=== PATIENT | female | born 1930 | race Caucasian/White ===

== ENCOUNTER 2019-01-20 20:18 | Inpatient (IN) | payer MEDICARE ==
[~2019-01-20] VITALS: Ht 160 cm; Wt 72.6 kg
[2019-01-20] MEDS ORDERED: ELAVIL25 MG PO (20:26)
[2019-01-20] MEDS ORDERED: ZOLOFT50 MG PO (20:27)
[2019-01-20] MEDS ORDERED: COZAAR25 MG PO (20:28)
[2019-01-20] MEDS ORDERED: COREG6.25 MG PO (20:28)
[2019-01-20] MEDS ORDERED: VOLTAREN25 MG PO (20:29)
[2019-01-20 21:41] VITALS: BP 236/82
[2019-01-20 21:41] LABS: BASOPHILS 0.1 % (0-2); EOSINOPHILS 0.5 % (0-7); HEMATOCRIT 42.7 % (36.0-48.0); HEMOGLOBIN 14.6 g/dL (12-16); IMMATURE GRANULOCYTES 0.7 % (0-5); LYMPHOCYTES 14.2 % (15-50); MCH 31.6 pg (26.0-34.0); MCHC 34.2 g/dL (31.0-37.0); MCV 92.4 fL (80.0-100.0); MEAN PLATELET VOLUME 9.4 fL (7.4-10.4); MONOCYTES 4.5 % (2-11); PLATELET COUNT 154 10x3/uL (130-400); RBC 4.62 10x6/uL (4.00-5.40); RDW 12.5 % (11.5-14.5); WBC 9.2 10x3/uL (4.8-10.8)
[2019-01-20 21:53] VITALS: BP 196/66
[2019-01-20 21:58] LABS: ALBUMIN 3.6 g/dL (3.4-5.0); ANION GAP 10.8 mmol/L (8-16); BILIRUBIN - TOTAL 0.53 mg/dL (0.2-1.3); CALCIUM 9.6 mg/dL (8.5-10.1); CARBON DIOXIDE 28.8 mmol/L (21.0-32.0); CREATININE - SERUM 0.9 mg/dL (0.6-1.3); POTASSIUM - SERUM 4.6 mmol/L (3.5-5.1); PROTEIN - SERUM 7.8 g/dL (6.4-8.2)
[2019-01-20 22:10] LABS: APTT 25.6 SECONDS (22.8-39.4); INR 1.03 (0.85-1.17)
[2019-01-20 22:45] VITALS: BP 169/55
[2019-01-21 00:30] VITALS: BP 141/52
[2019-01-21 02:18] VITALS: BP 145/50; BMI 28.4
[2019-01-21 05:03] VITALS: BP 165/64
[2019-01-21 06:04] LABS: ALBUMIN 3.3 g/dL (3.4-5.0); ANION GAP 9.4 mmol/L (8-16); BILIRUBIN - TOTAL 0.47 mg/dL (0.2-1.3); CARBON DIOXIDE 31.2 mmol/L (21.0-32.0); CREATININE - SERUM 0.9 mg/dL (0.6-1.3); POTASSIUM - SERUM 4.6 mmol/L (3.5-5.1); PROTEIN - SERUM 7.1 g/dL (6.4-8.2)
[2019-01-21 06:07] LABS: BASOPHILS 0.1 % (0-2); EOSINOPHILS 0.9 % (0-7); HEMATOCRIT 40.8 % (36.0-48.0); HEMOGLOBIN 13.6 g/dL (12-16); IMMATURE GRANULOCYTES 0.3 % (0-5); LYMPHOCYTES 6.5 % (15-50); MCH 31.2 pg (26.0-34.0); MCHC 33.3 g/dL (31.0-37.0); MCV 93.6 fL (80.0-100.0); MEAN PLATELET VOLUME 9.6 fL (7.4-10.4); MONOCYTES 4.2 % (2-11); PLATELET COUNT 172 10x3/uL (130-400); RBC 4.36 10x6/uL (4.00-5.40); RDW 12.8 % (11.5-14.5)
[2019-01-21 06:39] LABS: WBC 15.8 10x3/uL (4.8-10.8)
[2019-01-21 09:16] VITALS: BP 153/58
[2019-01-21 14:52] VITALS: Ht 160 cm; Wt 72.6 kg
[2019-01-21 16:13] VITALS: BP 135/58
[2019-01-21 19:01] LABS: APPEARANCE CLEAR (CLEAR); BILIRUBIN NEGATIVE (NEGATIVE); COLOR YELLOW (YELLOW); GLUCOSE NEGATIVE (NEGATIVE); KETONE NEGATIVE (NEGATIVE); NITRITE NEGATIVE (NEGATIVE); PROTEIN NEGATIVE (NEGATIVE); SPECIFIC GRAVITY 1.025 (1.005-1.020); UROBILINOGEN NORMAL (NORMAL)
[2019-01-21 19:02] LABS: BACTERIA FEW /hpf (NONE SEEN); RED CELLS - URINE 0-5 /hpf (0-5); WHITE CELLS - URINE OCC /hpf (0-5)
[2019-01-22] VITALS: BP 188/68
[2019-01-22 04:00] VITALS: BP 175/54
[2019-01-22 06:17] LABS: BASOPHILS 0.1 % (0-2); EOSINOPHILS 0.9 % (0-7); HEMATOCRIT 34.7 % (36.0-48.0); HEMOGLOBIN 11.5 g/dL (12-16); IMMATURE GRANULOCYTES 0.3 % (0-5); LYMPHOCYTES 8.9 % (15-50); MCH 31.3 pg (26.0-34.0); MCHC 33.1 g/dL (31.0-37.0); MCV 94.3 fL (80.0-100.0); MEAN PLATELET VOLUME 9.9 fL (7.4-10.4); MONOCYTES 5.8 % (2-11); RBC 3.68 10x6/uL (4.00-5.40); RDW 13.1 % (11.5-14.5)
[2019-01-22 06:27] LABS: PLATELET COUNT 122 10x3/uL (130-400); WBC 11.8 10x3/uL (4.8-10.8)
[2019-01-22 06:36] LABS: ALBUMIN 2.6 g/dL (3.4-5.0); ANION GAP 8.8 mmol/L (8-16); BILIRUBIN - TOTAL 0.45 mg/dL (0.2-1.3); CALCIUM 8.2 mg/dL (8.5-10.1); CARBON DIOXIDE 29.8 mmol/L (21.0-32.0); CREATININE - SERUM 0.8 mg/dL (0.6-1.3); POTASSIUM - SERUM 4.6 mmol/L (3.5-5.1); PROTEIN - SERUM 6.3 g/dL (6.4-8.2)
[2019-01-22 08:45] VITALS: BP 174/66
[2019-01-22 12:48] VITALS: BP 146/53
--- NOTE | 2019-01-22 16:23 | MORECARE ---
CASE MANAGEMENT DISCHARGE SUMMARY PATIENT: HAL COONEY UNIT: [id number] ADM DATE: 01/20/19 AGE: 88 : [birth year] SEX: F ROOM/BED: D.2218 AUTHOR: ANA TURNER PHYSICIAN: REFERRING PHYSICIAN: KATHRYN PAUILNO MD DATE OF SERVICE: 01/22/19 Discharge Plan Patient Name: HAL COONEY Facility: [facility]:[place] : 1930 Planned Disposition: Anticipated Discharge Date: Discharge Date: Expected LOS: Initial Reviewer: [email or web address] Initial Review Date: 01/20/2019 Generated: 01/22/19 5:23 pm Comments DCP- Discharge Planning Updated by [email or web address]: Cristy Montoya on 01/22/19 3:[address] attempted to see patient, but she was sleeping will try again tomorrow Patient Name: HAL COONEY Page 88788 at 1623 All edits/amendments must be made on the electronic document DICTATION DATE: 01/22/191622 MANAGER TRUST: AKASH 01/22/19 162 RPT#: [id number] DC DATE: STATUS: ADM IN [facility] [address] [place] [address] END OF REPORT
[2019-01-22 16:35] VITALS: BP 113/63
[2019-01-22 20:00] VITALS: BP 156/61
[2019-01-22 20:57] LABS: APPEARANCE HAZY (CLEAR); BILIRUBIN NEGATIVE (NEGATIVE); COLOR YELLOW (YELLOW); GLUCOSE NEGATIVE (NEGATIVE); KETONE NEGATIVE (NEGATIVE); NITRITE NEGATIVE (NEGATIVE); PROTEIN TRACE mg/dL (NEGATIVE); RED CELLS - URINE 25-50 /hpf (0-5); SPECIFIC GRAVITY 1.015 (1.005-1.020); UROBILINOGEN NORMAL (NORMAL); WHITE CELLS - URINE 0-5 /hpf (0-5)
[2019-01-22 20:58] LABS: BACTERIA FEW /hpf (NONE SEEN); EPITHELIAL CELLS 0-5 /hpf (0-5)
[2019-01-23] VITALS: BP 151/48
[2019-01-23 04:00] VITALS: BP 132/60
[2019-01-23 05:15] LABS: BASOPHILS 0.2 % (0-2); HEMATOCRIT 31.1 % (36.0-48.0); HEMOGLOBIN 10.3 g/dL (12-16); IMMATURE GRANULOCYTES 0.3 % (0-5); LYMPHOCYTES 13.8 % (15-50); MCH 31.5 pg (26.0-34.0); MCHC 33.1 g/dL (31.0-37.0); MCV 95.1 fL (80.0-100.0); MEAN PLATELET VOLUME 10.2 fL (7.4-10.4); MONOCYTES 6.5 % (2-11); NEUTROPHILS 74.2 % (40-80); PLATELET COUNT 99 10x3/uL (130-400); RBC 3.27 10x6/uL (4.00-5.40); RDW 13.2 % (11.5-14.5); WBC 10.3 10x3/uL (4.8-10.8)
[2019-01-23 05:44] LABS: ALBUMIN 2.4 g/dL (3.4-5.0); ANION GAP 11.4 mmol/L (8-16); BILIRUBIN - TOTAL 0.41 mg/dL (0.2-1.3); CARBON DIOXIDE 27.6 mmol/L (21.0-32.0); CREATININE - SERUM 0.8 mg/dL (0.6-1.3); PROTEIN - SERUM 5.6 g/dL (6.4-8.2)
[2019-01-23 08:46] VITALS: BP 167/66
--- NOTE | 2019-01-23 12:00 | MORECARE ---
CASE MANAGEMENT DISCHARGE SUMMARY PATIENT: HAL COONEY UNIT: [id number] ADM DATE: 01/20/19 AGE: 88 : [birth year] SEX: F ROOM/BED: D.2218 AUTHOR: ANA TURNER PHYSICIAN: REFERRING PHYSICIAN: KATHRYN PAULINO MD DATE OF SERVICE: 01/23/19 Discharge Plan Patient Name: HAL COONEY [facility]:[place] : 1930 Planned Disposition: Inpatient Rehab Anticipated Discharge Date: Discharge Date: Expected LOS: Initial Reviewer: [email or web address] Initial Review Date: 01/20/2019 Generated: 01/23/19 12:59 pm Comments DCP- Discharge Planning Updated by [email or web address]: Cristy Montyoa on 01/22/19 3:[address] attempted to see patient, but she was sleeping will try again tomorrow Last DP export: 01/22/19 3:23 pm Patient Name: HAL COONEY Page 72896 at 1200 All edits/amendments must be made on the electronic document DICTATION DATE: 01/23/19 1159 LOGISTICS OPERATIONS MANAGER: AKASH 01/23/19 1159 RPT#: [id number] DC DATE: STATUS: ADM IN [address] [place] [address] END OF REPORT
--- NOTE | 2019-01-23 12:08 | MORECARE ---
CASE MANAGEMENT DISCHARGE SUMMARY PATIENT: HAL COONEY UNIT: [id number] ADM DATE: 01/20/19 AGE: 88 : [birth year] SEX: F ROOM/BED: D.2218 AUTHOR: ANA TURNER PHYSICIAN: REFERRING PHYSICIAN: KATHRYN PAULINO MD DATE OF SERVICE: 01/23/19 Discharge Plan Patient Name: HAL COONEY Facility: [facility]:[place] : 1930 Planned Disposition: Inpatient Rehab Anticipated Discharge Date: Discharge Date: Expected LOS: Initial Reviewer: [email or web address] Initial Review Date: 01/20/2019 Generated: 01/23/19 1:07 pm Comments DCP- Discharge Planning Updated by [email or web address]: Cristy Montoya on 01/23/19 11:[address] Patient Name: HAL COONEY Admission Status: ER Accout number: [id number] Admission Date: 01-20-2019 : 1930 Admission Diagnosis: Attending: KATHRYN PAULINO Current LOS: 3 Anticipated DC Date: Planned Disposition: Inpatient Rehab Primary Insurance: MEDICARE A & B Discharge Planning Comments: CM met with patient to complete initial dc planning assessment. CM educated patient on the CM role and verbal consent given by patient to complete assessment. Patient lives at home alone where she was independent with her care. At discharge patient plans to go to inpatient rehab for her first choice & [facility] choice. RENEE signed and placed in chart. Patient's daughter Arron stated that she was told that she would go to our in patient rehab first. CM discussed availability of home health, rehab services, and medical equipment. She has a walker, cane and shower chair at home. [facility] served and explained to patient and daughter. Patient denied known discharge needs at this time. CM will continue to follow and will assist as needed with dc plans/needs. Director Speech Language: Cristy Montoya DCP- Discharge Planning Updated by [email or web address]: Cristy Montoya on 01/22/19 3:[address] attempted to see patient, but she was sleeping will try again tomorrow DCPIA - Discharge Planning Initial Assessment Updated by [email or web address]: Cristy Montoya on 01/23/19 12:02 pm * Is the patient Alert and Oriented? Yes * How many steps to enter\exit or inside your home? * PCP [facility] * Pharmacy [facility] * Preadmission Environment Home Alone * ADLs Independent * Equipment Cane Rolling Walker Shower Chair * List name and contact numbers for known caregivers / representatives who currently or will assist patient after discharge: ARRON (DAUGHTER) [phone] [facility] [phone] * Verbal permission to speak to the caregivers and representatives has been obtained from the patient. Yes * Community resources currently utilized None * Additional services required to return to the preadmission environment? Yes * Can the patient safely return to the preadmission environment? No * Has this patient been hospitalized within the prior 30 days at any hospital? No Coverage Notice Reviewer: [email or web address] Omid Montoya Notice Issued Date-Time: 01/23/2019 9:10 Notice Type: Patient Choice Letter Notice Delivered To: Patient Relationship to Patient: Highway Painter Name: Delivery Method: HAND - Hand Delivered Randee Days: Prior Verbal Notification: Recipient Understood Notice: Yes Recipient Signature: Yes Med Rec Note Co-signed by Attending: Coverage Notice Comment: Reviewer: [id number] Montoya Notice Issued Date-Time: 01/23/2019 9:10 Notice Type: IM Discharge Notice Notice Delivered To: Patient Relationship to Patient: Daughter Highway Painter Name: arron Delivery Method: HAND - Hand Delivered Randee Days: Prior Verbal Notification: Recipient Understood Notice: Yes Recipient Signature: Yes Med Rec Note Co-signed by Attending: Coverage Notice Comment: Last DP export: 01/23/19 11:00 am Patient Name: HAL COONEY Page 54595 at 1208 All edits/amendments must be made on the electronic document DICTATION DATE: 01/23/19 1207 SHIFT SUPERINTENDENT: AKASH 01/23/19 1207 RPT#: [id number] DC DATE: STATUS: ADM IN [facility] [address] [place] [address] END OF REPORT
[2019-01-23 12:48] VITALS: BP 165/62
[2019-01-23 16:45] VITALS: BP 139/60
[2019-01-23 19:50] VITALS: BP 122/50
[2019-01-24] VITALS: BP 163/99
[2019-01-24 04:00] VITALS: BP 178/72
[2019-01-24 08:24] VITALS: BP 173/63
[2019-01-24 09:46] LABS: BASOPHILS 0.3 % (0-2); HEMATOCRIT 30.1 % (36.0-48.0); HEMOGLOBIN 9.9 g/dL (12-16); IMMATURE GRANULOCYTES 0.1 % (0-5); LYMPHOCYTES 18.2 % (15-50); MCH 31.1 pg (26.0-34.0); MCHC 32.9 g/dL (31.0-37.0); MCV 94.7 fL (80.0-100.0); MONOCYTES 8.5 % (2-11); NEUTROPHILS 68.9 % (40-80); PLATELET COUNT 112 10x3/uL (130-400); RBC 3.18 10x6/uL (4.00-5.40); RDW 12.9 % (11.5-14.5)
[2019-01-24 09:59] LABS: ALBUMIN 2.1 g/dL (3.4-5.0); ANION GAP 8.4 mmol/L (8-16); BILIRUBIN - TOTAL 0.44 mg/dL (0.2-1.3); CALCIUM 8.2 mg/dL (8.5-10.1); CARBON DIOXIDE 27.4 mmol/L (21.0-32.0); CREATININE - SERUM 0.8 mg/dL (0.6-1.3); POTASSIUM - SERUM 3.8 mmol/L (3.5-5.1); PROTEIN - SERUM 6.1 g/dL (6.4-8.2)
[2019-01-24 12:31] VITALS: BP 162/65
[2019-01-24 14:14] LABS: APPEARANCE HAZY (CLEAR); BILIRUBIN NEGATIVE (NEGATIVE); COLOR BROWN (YELLOW); GLUCOSE NEGATIVE (NEGATIVE); KETONE NEGATIVE (NEGATIVE); NITRITE NEGATIVE (NEGATIVE); PROTEIN TRACE mg/dL (NEGATIVE); SPECIFIC GRAVITY 1.015 (1.005-1.020); UROBILINOGEN NORMAL (NORMAL)
[2019-01-24 14:15] LABS: BACTERIA FEW /hpf (NONE SEEN); EPITHELIAL CELLS 0-5 /hpf (0-5); RED CELLS - URINE 25-50 /hpf (0-5)
[2019-01-24 17:49] VITALS: BP 107/47
[2019-01-24 20:00] VITALS: BP 177/53
[2019-01-25] VITALS: BP 170/68
[2019-01-25 05:48] LABS: BASOPHILS 0.4 % (0-2); EOSINOPHILS 4.6 % (0-7); HEMATOCRIT 31.3 % (36.0-48.0); HEMOGLOBIN 10.3 g/dL (12-16); IMMATURE GRANULOCYTES 0.3 % (0-5); LYMPHOCYTES 17.3 % (15-50); MCH 31.2 pg (26.0-34.0); MCHC 32.9 g/dL (31.0-37.0); MCV 94.8 fL (80.0-100.0); MEAN PLATELET VOLUME 10.5 fL (7.4-10.4); MONOCYTES 8.6 % (2-11); NEUTROPHILS 68.8 % (40-80); PLATELET COUNT 134 10x3/uL (130-400); WBC 7.7 10x3/uL (4.8-10.8)
[2019-01-25 06:07] LABS: ALBUMIN 2.2 g/dL (3.4-5.0); ALKALINE PHOSPHATASE 49 U/L (46-116); BILIRUBIN - TOTAL 0.48 mg/dL (0.2-1.3); CALC OSMOLALITY 282 mosm/kg (275-300); CALCIUM 8.6 mg/dL (8.5-10.1); CARBON DIOXIDE 28.5 mmol/L (21.0-32.0); CHLORIDE - SERUM 108 mmol/L (98-107); CREATININE - SERUM 0.7 mg/dL (0.6-1.3); GLUCOSE 116 mg/dL (74-106); SODIUM 140 mmol/L (136-145); UREA NITROGEN 20 mg/dL (7-18); eGFR NON AFRICAN AMERICAN 83 mL/min (90-120)
[2019-01-25 06:09] LABS: ALT (SGPT) 34 U/L (10-68)
[2019-01-25 09:22] VITALS: BP 176/53
[2019-01-25 13:16] VITALS: BP 187/48
[2019-01-25 13:23] VITALS: BP 187/48
--- NOTE | 2019-01-25 17:35 | MORECARE ---
CASE MANAGEMENT DISCHARGE SUMMARY PATIENT: HAL COONEY UNIT: [id number] ADM DATE: 01/20/19 AGE: 88 : [birth year] SEX: F ROOM/BED: D.2218 AUTHOR: ANA TURNER PHYSICIAN: REFERRING PHYSICIAN: KATHRYN PAULINO MD DATE OF SERVICE: 01/25/19 Discharge Plan Patient Name: HAL COONEY Facility: [facility]:[place] : 1930 Planned Disposition: Inpatient Rehab Anticipated Discharge Date: Discharge Date: Expected LOS: Initial Reviewer: [email or web address] Initial Review Date: 01/20/2019 Generated: 01/25/19 6:35 pm Comments DCP- Discharge Planning Updated by [email or web address]: Aditi Lock on 01/25/19 4:[address] ACUTE REHAB NOTED TODAY AT 1600, THE PATIENT HAS BEEN ACCEPTED TO [facility]. TRANSFER WHEN MEDICALLY STABLE. CLEARED BY ORTHOPEDICS. DISCUSSED WITH PRIMARY NURSE. DCP- Discharge Planning Updated by [id number]: Cristy Montoya on 01/23/19 11:[address] Patient Name: HAL COONEY Admission Status: ER Accout number: [id number] Admission Date: 01-20-2019 : 1930 Admission Diagnosis: Attending: KATHRYN PAULINO Current LOS: 3 Anticipated DC Date: Planned Disposition: Inpatient Rehab Primary Insurance: MEDICARE A & B Discharge Planning Comments: CM met with patient to complete initial dc planning assessment. CM educated patient on the CM role and verbal consent given by patient to complete assessment. Patient lives at home alone where she was independent with her care. At discharge patient plans to go to inpatient rehab for her first choice & [facility] her [facility] choice. RENEE signed and placed in chart. Patient's daughter Arron stated that she was told that she would go to our in patient rehab first. CM discussed availability of home health, rehab services, and medical equipment. She has a walker, cane and shower chair at home. [facility] served and explained to patient and daughter. Patient denied known discharge needs at this time. CM will continue to follow and will assist as needed with dc plans/needs. Property Caretaker: Cristy Montoya DCP- Discharge Planning Updated by [email or web address]: Cristy Montoya on 01/22/19 3:[address] attempted to see patient, but she was sleeping will try again tomorrow DCPIA - Discharge Planning Initial Assessment Updated by [email or web address]: Cristy Montoya on 01/23/19 12:02 pm * Is the patient Alert and Oriented? Yes * How many steps to enter\exit or inside your home? * PCP [facility] * Pharmacy [facility] * Preadmission Environment Home Alone * ADLs Independent * Equipment Cane Rolling Walker Shower Chair * List name and contact numbers for known caregivers / representatives who currently or will assist patient after discharge: ARRON (DAUGHTER) [phone] [facility] [phone] * Verbal permission to speak to the caregivers and representatives has been obtained from the patient. Yes * Community resources currently utilized None * Additional services required to return to the preadmission environment? Yes * Can the patient safely return to the preadmission environment? No * Has this patient been hospitalized within the prior 30 days at any hospital? No Coverage Notice Reviewer: [email or web address] Omid Montoya Notice Issued Date-Time: 01/23/2019 9:10 Notice Type: Patient Choice Letter Notice Delivered To: Patient Relationship to Patient: Shaker Repairer Name: Delivery Method: HAND - Hand Delivered Randee Days: Prior Verbal Notification: Recipient Understood Notice: Yes Recipient Signature: Yes Med Rec Note Co-signed by Attending: Coverage Notice Comment: Reviewer: [id number] Omid Montoya Notice Issued Date-Time: 01/23/2019 9:10 Notice Type: IM Discharge Notice Notice Delivered To: Patient Relationship to Patient: Daughter Shaker Repairer Name: arron Delivery Method: HAND - Hand Delivered Randee Days: Prior Verbal Notification: Recipient Understood Notice: Yes Recipient Signature: Yes Med Rec Note Co-signed by Attending: Coverage Notice Comment: Last DP export: 01/23/19 11:07 am Patient Name: HAL COONEY Page 10038 at 1733 All edits/amendments must be made on the electronic document DICTATION DATE: 01/25/191733 FEDERAL AGENT: AKASH 01/25/191733 RPT#: [id number] DC DATE: STATUS: ADM IN [facility] [address] [place] [address] END OF REPORT
[2019-01-25 19:45] VITALS: BP 120/75
[2019-01-26 00:24] VITALS: BP 197/64
[2019-01-26 04:48] VITALS: BP 197/46
[2019-01-26 05:04] LABS: HEMATOCRIT 30.5 % (36.0-48.0); HEMOGLOBIN 10.3 g/dL (12-16); LYMPHOCYTES 22.2 % (15-50); MCH 31.5 pg (26.0-34.0); MCHC 33.8 g/dL (31.0-37.0); MCV 93.3 fL (80.0-100.0); MEAN PLATELET VOLUME 9.9 fL (7.4-10.4); NEUTROPHILS 66.2 % (40-80); PLATELET COUNT 108 10x3/uL (130-400); RBC 3.27 10x6/uL (4.00-5.40); RDW 12.6 % (11.5-14.5); WBC 6.4 10x3/uL (4.8-10.8)
[2019-01-26 05:32] LABS: ALKALINE PHOSPHATASE 50 U/L (46-116); ALT (SGPT) 32 U/L (10-68); BILIRUBIN - TOTAL 0.39 mg/dL (0.2-1.3); CALC OSMOLALITY 288 mosm/kg (275-300); CALCIUM 8.1 mg/dL (8.5-10.1); CARBON DIOXIDE 27.9 mmol/L (21.0-32.0); CHLORIDE - SERUM 108 mmol/L (98-107); CREATININE - SERUM 0.7 mg/dL (0.6-1.3); GLUCOSE 138 mg/dL (74-106); POTASSIUM - SERUM 3.8 mmol/L (3.5-5.1); PROTEIN - SERUM 5.4 g/dL (6.4-8.2); SODIUM 143 mmol/L (136-145); UREA NITROGEN 18 mg/dL (7-18); eGFR NON AFRICAN AMERICAN 83 mL/min (90-120)
[2019-01-26 08:46] VITALS: BP 130/67
[2019-01-26 13:46] VITALS: BP 144/68
[2019-01-26] MEDS ORDERED: XOPENEX 1.1.25 MG/3 UPD (15:32)
[2019-01-26] MEDS ORDERED: TESSALON PERLE100 MG PO (15:33)
[2019-01-26] MEDS ORDERED: PROTONIX40 MG PO (15:33)
[2019-01-26] MEDS ORDERED: MUCINEX600 MG PO (15:33)
[2019-01-26] MEDS ORDERED: ZITHROMAX250 MG PO ×2 (15:34→16:20)
[2019-01-26] MEDS ORDERED: HYDROCODON-ACE1 EAC2 PO (16:28)
--- NOTE | 2019-01-28 11:47 | MORECARE ---
CASE MANAGEMENT DISCHARGE SUMMARY PATIENT: HAL COONEY UNIT: [id number] ADM DATE: 01/20/19 AGE: 88 : [birth year] SEX: F ROOM/BED: D.2218 AUTHOR: ANA TURNER PHYSICIAN: REFERRING PHYSICIAN: KATHRYN PAULINO MD DATE OF SERVICE: 01/28/19 Discharge Plan Patient Name: HAL COONEY Facility: [facility]:[place] : 1930 Planned Disposition: Inpatient Rehab Anticipated Discharge Date: Discharge Date: 01/26/2019 Expected LOS: Initial Reviewer: [email or web address] Initial Review Date: 01/20/2019 Generated: 01/28/19 12:46 pm Comments DCP- Discharge Planning Updated by [email or web address]: Aditi Lock on 01/25/19 4:[address] ACUTE REHAB NOTED TODAY AT 1600, THE PATIENT HAS BEEN ACCEPTED TO [facility]UTE [facility]. TRANSFER WHEN MEDICALLY STABLE. CLEARED BY ORTHOPEDICS. DISCUSSED WITH PRIMARY NURSE. DCP- Discharge Planning Updated by [email or web address]: Cristy Montoya on 01/23/19 11:[address] Patient Name: HAL COONEY Admission Status: ER Accout number: [id number] Admission Date: 01-20-2019 : 1930 Admission Diagnosis: Attending: KATHRYN PAULINO Current LOS: 3 Anticipated DC Date: Planned Disposition: Inpatient Rehab Primary Insurance: MEDICARE A & B Discharge Planning Comments: CM met with patient to complete initial dc planning assessment. CM educated patient on the CM role and verbal consent given by patient to complete assessment. Patient lives at home alone where she was independent with her care. At discharge patient plans to go to inpatient rehab for her first choice & [facility] her [facility] choice. RENEE signed and placed in chart. Patient's daughter Arron stated that she was told that she would go to our in patient rehab first. CM discussed availability of home health, rehab services, and medical equipment. She has a walker, cane and shower chair at home. IMM served and explained to patient and daughter. Patient denied known discharge needs at this time. CM will continue to follow and will assist as needed with dc plans/needs. Admissions Consultant: Cristy Montoya DCP- Discharge Planning Updated by [email or web address]: Cristy Montoya on 01/22/19 3:[address] attempted to see patient, but she was sleeping will try again tomorrow DCPIA - Discharge Planning Initial Assessment Updated by [id number]: Cristy Montoya on 01/23/19 12:02 pm * Is the patient Alert and Oriented? Yes * How many steps to enter\exit or inside your home? * PCP [facility] * Pharmacy [facility] * Preadmission Environment Home Alone * ADLs Independent * Equipment Cane Rolling Walker Shower Chair * List name and contact numbers for known caregivers / representatives who currently or will assist patient after discharge: ARRON (DAUGHTER) [phone] [facility] [phone] * Verbal permission to speak to the caregivers and representatives has been obtained from the patient. Yes * Community resources currently utilized None * Additional services required to return to the preadmission environment? Yes * Can the patient safely return to the preadmission environment? No * Has this patient been hospitalized within the prior 30 days at any hospital? No Coverage Notice Reviewer: [email or web address] Omid Montoya Notice Issued Date-Time: 01/23/2019 9:10 Notice Type: Patient Choice Letter Notice Delivered To: Patient Relationship to Patient: Occupational Hygienist Name: Delivery Method: HAND - Hand Delivered Randee Days: Prior Verbal Notification: Recipient Understood Notice: Yes Recipient Signature: Yes Med Rec Note Co-signed by Attending: Coverage Notice Comment: Reviewer: [id number] Omid Montoya Notice Issued Date-Time: 01/23/2019 9:10 Notice Type: IM Discharge Notice Notice Delivered To: Patient Relationship to Patient: Daughter Occupational Hygienist Name: arron Delivery Method: HAND - Hand Delivered Randee Days: Prior Verbal Notification: Recipient Understood Notice: Yes Recipient Signature: Yes Med Rec Note Co-signed by Attending: Coverage Notice Comment: Last DP export: 01/25/19 4:35 pm Patient Name: HAL COONEY Page 66613 at 1147 All edits/amendments must be made on the electronic document DICTATION DATE: 01/28/19 1146 MODEL ENGINE MECHANIC: AKASH 01/28/19 1146 RPT#: [id number] DC DATE:01/26/19 STATUS: DIS IN [facility] [address] [place] [address] END OF REPORT
== END 2019-01-26 18:35 | DRG 470 ==
LOC: D.ER 20:18 → D.MS 21:29 → D.EDHOLD 21:29 → D.MS 22:19
PROVIDERS: Family Medicine; Orthopaedic Surgery; ADMIT Family Medicine; ATTEND Family Medicine
PROC: 0SRR0J9 Replacement of Right Hip Joint, Femoral Surface with Synthetic Substitute, Cemented, Open Approach (ICD-10-PCS; principal; 2019-01-21 09:00)
DX: S72.001A Fracture of unspecified part of neck of right femur, initial encounter for closed fracture (principal); J98.11 Atelectasis; I10 Essential (primary) hypertension

== ENCOUNTER 2019-01-26 18:20 | Inpatient (IN) | payer MEDICARE ==
[~2019-01-26] VITALS: Ht 160 cm; Wt 72.6 kg
[~2019-01-26 18:20] MED LIST: COREG6.25 MG PO; COZAAR25 MG PO; ELAVIL25 MG PO; HYDROCODON-ACE1 EAC2 PO; MUCINEX600 MG PO; PROTONIX40 MG PO; TESSALON PERLE100 MG PO; VOLTAREN25 MG PO; XOPENEX 1.1.25 MG/3 UPD; ZITHROMAX250 MG PO; ZOLOFT50 MG PO
[2019-01-26 23:05] VITALS: BP 190/63; BMI 28.4
--- NOTE | 2019-01-26 23:45 | NUR ---
PT IN BED LOW POSITION, WATCHING TV, NO NEEDS NOTED, DUKES CATH PATENT AND DRAINING, FLUIDS AND CALL LIGHT WITHIN REACH
--- NOTE | 2019-01-27 01:48 | NUR ---
PT IN BED LOW POSITION, EYES CLOSED, AROUSES EASILY TO VOICE, NO NEEDS NOTED, FLUIDS AND CALL LIGHT WITHIN REACH
[2019-01-27 06:16] LABS: BASOPHILS 0.3 % (0-2); EOSINOPHILS 3.5 % (0-7); HEMATOCRIT 30.6 % (36.0-48.0); HEMOGLOBIN 9.9 g/dL (12-16); IMMATURE GRANULOCYTES 0.4 % (0-5); LYMPHOCYTES 22.5 % (15-50); MCH 30.4 pg (26.0-34.0); MCHC 32.4 g/dL (31.0-37.0); MCV 93.9 fL (80.0-100.0); MEAN PLATELET VOLUME 10.3 fL (7.4-10.4); MONOCYTES 8.4 % (2-11); NEUTROPHILS 64.9 % (40-80); RBC 3.26 10x6/uL (4.00-5.40); RDW 12.7 % (11.5-14.5); WBC 6.9 10x3/uL (4.8-10.8)
[2019-01-27 06:25] LABS: CALC OSMOLALITY 290 mosm/kg (275-300); CALCIUM 8.6 mg/dL (8.5-10.1); CARBON DIOXIDE 35.2 mmol/L (21.0-32.0); CHLORIDE - SERUM 108 mmol/L (98-107); CREATININE - SERUM 0.7 mg/dL (0.6-1.3); GLUCOSE 108 mg/dL (74-106); POTASSIUM - SERUM 3.6 mmol/L (3.5-5.1); SODIUM 145 mmol/L (136-145); UREA NITROGEN 14 mg/dL (7-18); eGFR NON AFRICAN AMERICAN 83 mL/min (90-120)
--- NOTE | 2019-01-27 06:28 | NUR ---
RESTING IN BED WITH EYES CLOSED.
[2019-01-27 07:00] LABS: PLATELET COUNT 169 10x3/uL (130-400)
--- NOTE | 2019-01-27 09:00 | NUR ---
PT AM MEDS ADMINISTERED. PT JENNIFER SILVA. CONCEPCIÓN.
[2019-01-27 09:15] VITALS: Ht 160 cm; Wt 72.6 kg
[2019-01-27 09:47] VITALS: BP 211/77
--- NOTE | 2019-01-27 12:06 | NUR ---
PATIENT ADMITTED TO REHAB FROM ACUTE FLOOR. DR. FERREIRA IS HER PCP AND DME AT HOME IS A WALKER, CANE AND SHOWER CHAIR. SHE HAS NO OUTSIDE SERVICES AT THIS TIME. WILL CONTINUE TO FOLLOW WITH PATIENT AND WILL ASSIST WITH DISCHARGE NEEDS.
--- NOTE | 2019-01-27 18:31 | NUR ---
PT RESTING IN BED, DENIES NEED. WCTM.
--- NOTE | 2019-01-27 19:02 | NUR ---
PATIENT IS RESTING IN HER BED. BED IS DOWN LOW WITH SIDE RAILS UP X2 AND CALL LIGHT IN REACH.
[2019-01-27 20:00] VITALS: BP 175/67
--- NOTE | 2019-01-28 00:05 | NUR ---
PATIENT IS SLEEPING.
--- NOTE | 2019-01-28 09:05 | NUR ---
PT AM MMEDS ADMINISTERED. PT DENIES NEEDS AT THIS TIME. WCTM.
--- NOTE | 2019-01-28 10:40 | NUR ---
PT PROVENA WOUND VAC REMOVED. PT INCISION IS WELL APPROX WITH JERARDO. NO DRAINAGE NOTED. PT DENIES NEEDS AT THIS TIME. WCTM.
[2019-01-28 11:02] VITALS: BP 160/51
--- NOTE | 2019-01-28 14:27 | RHP ---
PATIENT: HAL COONEY MEDICAL RECORD: [id number] ACCOUNT: [id number] LOCATION:[facility] : [birth year] ADMISSION DATE: 01/26/19 REHABILITATION HISTORY AND PHYSICAL EXAMINATION POST ADMISSION PHYSICIAN EXAMINATION POST ADMISSION PHYSICAL EXAMINATION AND HISTORY AND PHYSICAL DATE OF ADMISSION: 01/26/2019 ADMITTING DIAGNOSIS: Status post unilateral hip fracture involving the right hip, status post bipolar hemiarthroplasty. HISTORY OF PRESENT ILLNESS: The patient was admitted to inpatient rehab from orthopedic complaining of right hip fracture, status post right hip bipolar hemiarthroplasty. She is an 88-year-old female, who presented to the ED with fall at home in her kitchen with complaints of right hip pain and unable to bear weight. She has got a history of hypertension and breast cancer, arthritis, and chronic back pain. She was found to have a right femoral neck fracture that was displaced. Orthopedic consult was done. She had a right hip bipolar elvia-arthroscopy on January 21. She is receiving supplemental oxygen and updrafts with no home O2 set up at this time. She had postop anemia, postop fever, had a UA that was positive. She had some postop confusion, postop pain. She is high risk for falls, debility, deconditioning, and impaired mobility. She lives alone, actually has self-care deficits at this time. These are all barriers to her discharge home safely at this time. She lives at home alone and her daughter lives close and checks on her often. She was moderately independent with her mobility with the use of rollator and was independent with ADLs using a shower bench. She and her daughter plan for her to be able to return home as close to her prior level of functioning or better after her stay here in the rehab. COMORBIDITIES: Comorbidities in this patient include hypertension, fracture of femoral neck, acute pain, postoperative blood loss anemia, postop hypoxia, elevated temperature, leukocytosis, impaired mobility, weakness, debility, self-care deficit, history of breast cancer, arthritis, chronic back pain. PAST MEDICAL HISTORY: Significant for allergies, hypertension, pneumonia, breast cancer, arthritis, chronic back pain, hysterectomy, and kidney stones. PAST SURGICAL HISTORY: Includes hysterectomy and now hip surgery. ALLERGIES: SULFA AND LYRICA. CURRENT MEDICATIONS: Include Protonix 40 mg daily, Zoloft 50 mg daily, carvedilol 3.125 mg b.i.d. with meals. She is on Zithromax, she will get a total of 4 doses. She is on [place] 7.5/325 one tab every 4 hours p.r.n., Cozaar 25 mg b.i.d., Xopenex 1.25 mg every 8 hours as needed, Mucinex 1-2 tabs b.i.d., diclofenac tablet 25 mg q.i.d. She is on Tessalon Perles 100 mg t.i.d. p.r.n. cough and Elavil 25 mg at bedtime. HABITS: No current alcohol or tobacco use. FAMILY HISTORY: Noncontributory. HISTORY AND PHYSICAL [id number] HAL COONEY SOCIAL HISTORY: The patient hopes to return back home and get back to her prior level of functioning. REVIEW OF SYSTEMS: GENERAL: Does complain of some weakness. HEENT: Denies cold, cough, or congestion. CARDIOVASCULAR: Denies any chest pain. PHYSICAL EXAMINATION: VITAL SIGNS: Stable, afebrile. She does have a little bit of an elevated systolic blood pressure this morning, but generally a somewhat obese female, in no distress upon exam. HEENT: Normocephalic and atraumatic. Mucosa moist. NECK: Supple. No lymphadenopathy. LUNGS: Clear in [place]. No wheezes, rhonchi or rales. HEART: Regular rate and rhythm. No murmurs, rubs or gallops. ABDOMEN: Soft, nontender, nondistended. Positive bowel sounds times 4. EXTREMITIES: Postop swelling looks normal. NEUROLOGIC: She does have some noted weakness, especially in her proximal extremities. LABORATORY DATA: White count 6.9, H&H 9.9 and 30.6, and platelet count is 169. Her sodium is 145, potassium 3.6, BUN and creatinine of 14 and 0.7, and blood sugar is noted to be 108. ASSESSMENT: This is an 88-year-old female patient admitted to rehab with a working diagnosis of hip fracture status post bipolar elvia-arthroscopy. The patient has potential to make improvement. We will institute the following multidisciplinary therapies including, but not limited to, physical, occupational, respiratory, speech, nutritional services, prosthetics, and orthotics. Given her complex medical condition and risks for more complications, rehabilitation services cannot be provided at a lower level of care such as a skilled nurse facility. PLAN: 1. Admit to [facility] for inpatient therapy to include the following disciplines; A. Physical therapy to improve gait, all transfer skills, and bed mobility to modified independent level. B. Occupational therapy to modified independent level. C. Case management to assist with discharge planning and placement options. D. Nutrition to assist with nutritional needs. E. Rehabilitation nursing to assist in monitoring the patient's underlying medical conditions and to assist with any type of bowel or bladder management. 2. The patient's current medications and medical care will be continued. 3. The patient will be placed on standard fall precautions. 4. The patient's estimated length of stay is approximately 7-10 days. 5. We will discuss the patient during care team staff meeting this week. TRANSINT:[id number] Voice Confirmation ID: [id number] DOCUMENT ID: [id number] VIOLETTA notes whether there has been none or any medical/functional change since admission: - No change since prescreen. HISTORY AND PHYSICAL [id number] HAL COONEY attests patient continues to be appropriate for IRF: - Continues to be appropriate. MELLISA JONES MD at 1427 CC: [id number] DICTATION DATE: 01/27/19 0750 DISTRIBUTION TECH: 01/27/19 1000 ADM IN [facility] [address] [place] [address]
--- NOTE | 2019-01-28 17:51 | NUR ---
PT EATING DINNER, DENIES NEEDS. WCTM.
--- NOTE | 2019-01-28 19:10 | NUR ---
PATIENT IS SITTING UP IN HER WHEELCHAIR. SHE DENIES ANY NEEDS. CALL LIGHT IS IN REACH.
[2019-01-28 20:30] VITALS: BP 158/46
--- NOTE | 2019-01-29 00:02 | NUR ---
PATIENT IS SLEEPING. BED IS DOWN LOW WITH SIDE RAILS ARE UP X2. CALL LIGHT IS IN REACH.
--- NOTE | 2019-01-29 04:02 | NUR ---
PATIENT IS SLEEPING.
--- NOTE | 2019-01-29 08:15 | NUR ---
PT RESTING IN BED WITH EYES OPEN CALL LIGHT IN REACH WILL MONITER
--- NOTE | 2019-01-29 10:10 | NUR ---
ACTIVE IN THERAPY.ELANA WELL.
--- NOTE | 2019-01-29 16:59 | NUR ---
PT HAD ACCIDENT OF URINE IN PANTS PT TOOK TO BATHROOM CLEANED AND DRYED AND PUT BACK IN WHEELCHAIR PT SAID SHE HAD PUT MATERIAL REQUISITIONER LIGHT EARLIER BUT IT DID NOT RING CALL LIGHT CHECKED AND IN FUNCTIONING ORDER CALL LIGHT IN REACH WILL STEFANIE
--- NOTE | 2019-01-29 17:43 | NUR ---
PT RESTING IN BED WITH EYES OPEN CALL LIGHT IN REACH WILL MONITER
[2019-01-29 20:10] VITALS: BP 162/48
--- NOTE | 2019-01-29 20:16 | NUR ---
AWAKE AND ALERT. RESTING IN BED NOW AFTER ASSISTING TO BATHROOM. HAD A BM. NO DISTRESS NOTED. CALL LIGHT IN REACH.
--- NOTE | 2019-01-30 02:39 | NUR ---
ASSISTED WITH BEDPAN. VOIDING WITHOUT DIFFICULTY. NOW RESTING WITH NO DISTRESS NOTED.
--- NOTE | 2019-01-30 04:56 | NUR ---
CONTINUES RESTING IN BED. QUIET HOURS. NO ACUTE CHANGES IN CONDITION THIS SHIFT. NO DISTRESS NOTED.
[2019-01-30 06:59] LABS: BASOPHILS 0.3 % (0-2); EOSINOPHILS 3.5 % (0-7); HEMATOCRIT 29.6 % (36.0-48.0); HEMOGLOBIN 9.7 g/dL (12-16); IMMATURE GRANULOCYTES 0.3 % (0-5); LYMPHOCYTES 25.7 % (15-50); MCH 30.8 pg (26.0-34.0); MCHC 32.8 g/dL (31.0-37.0); NEUTROPHILS 62.2 % (40-80); RBC 3.15 10x6/uL (4.00-5.40); RDW 13.1 % (11.5-14.5); WBC 7.8 10x3/uL (4.8-10.8)
[2019-01-30 07:00] LABS: ANION GAP 6.3 mmol/L (8-16); CALCIUM 8.9 mg/dL (8.5-10.1); CARBON DIOXIDE 33.2 mmol/L (21.0-32.0); CREATININE - SERUM 0.9 mg/dL (0.6-1.3); POTASSIUM - SERUM 3.5 mmol/L (3.5-5.1)
[2019-01-30 07:05] LABS: PLATELET COUNT 247 10x3/uL (130-400)
--- NOTE | 2019-01-30 08:23 | NUR ---
PT RESTING IN BED WITH EYES OPEN CALL LIGHT IN REACH NO PROBLEMS WILL MONITER
--- NOTE | 2019-01-30 15:43 | NUR ---
PT RESTING IN BED WITH EYES OPEN CALL LIGHT IN REACH WILL MONITER
--- NOTE | 2019-01-30 18:00 | NUR ---
I have reviewed this patient and I concur with the Shift Assessment completed by the Licensed Practical Nurse today this shift.
[2019-01-30 19:07] VITALS: BP 178/48
--- NOTE | 2019-01-30 19:19 | NUR ---
AWAKE AND ALERT. RESTING IN BED. RESPIRATIONS UNLABORED ON O2/2L PER NASAL CANNULA. NO DISTRESS NOTED. CALL LIGHT IN REACH.
--- NOTE | 2019-01-31 03:11 | NUR ---
RESTING IN BED WITH EYES CLOSED AND RESPIRATIONS UNLABORED. NO DISTRESS NOTED.
--- NOTE | 2019-01-31 05:48 | NUR ---
COMPLETE BATH DONE AND LINENS CHANGED. NO DISTRESS NOTED. JERARDO INTACT TO RIGHT HIP. CONDITION UNCHANGED THIS SHIFT.
--- NOTE | 2019-01-31 08:00 | NUR ---
PT EATING BREAKFAST, DENIES NEEDS. WCTM.
[2019-01-31 08:30] VITALS: BP 153/49
--- NOTE | 2019-01-31 10:00 | NUR ---
PT AM MEDS ADMINSITERED. PT REQ AND REC'D PRN PAIN MEDICATION AT THIS TIME. WCTM.
--- NOTE | 2019-01-31 19:12 | NUR ---
PATIENT IS RESTING IN BED. SHE DENIES ANY NEEDS. HER BED IS DOWN LOW WITH SIDE RAILS UP X2. CALL LIGHT IS IN REACH.
[2019-01-31 20:00] VITALS: BP 165/54
--- NOTE | 2019-02-01 00:02 | NUR ---
PATIENT IS SLEEPING.
--- NOTE | 2019-02-01 04:02 | NUR ---
PATIENT IS SLEEPING. BED IS DOWN LOW WITH SIDE RAILS UP X2. CALL LIGHT IS IN REACH.
--- NOTE | 2019-02-01 07:29 | NUR ---
ALERT AND ORIENTED. RESP EVEN AND UNLABORED. NO DISTRESS NOTED. CL IN REACH
[2019-02-01 09:05] VITALS: BP 198/61
--- NOTE | 2019-02-01 14:28 | NUR ---
NO CHANGE IN ASSESSMENT. FAMILY AT BS.
[2019-02-01 16:27] VITALS: BP 138/70
--- NOTE | 2019-02-01 17:33 | NUR ---
EATING DINNER. PAIN MED GIVEN. PLACED PILLOW SUPPORT TO BACK.
--- NOTE | 2019-02-01 19:01 | NUR ---
PATIENT IS RESTING IN HER BED WITH HER EYES CLOSED. BED IS DOWN LOW WITH SIDE RAILS UP X2. CALL LIGHT IS IN REACH.
[2019-02-01 19:36] VITALS: BP 162/50
[2019-02-02 06:10] LABS: BASOPHILS 0.4 % (0-2); EOSINOPHILS 4.5 % (0-7); HEMATOCRIT 32.2 % (36.0-48.0); HEMOGLOBIN 10.2 g/dL (12-16); IMMATURE GRANULOCYTES 0.5 % (0-5); LYMPHOCYTES 23.1 % (15-50); MCH 30.8 pg (26.0-34.0); MCHC 31.7 g/dL (31.0-37.0); MCV 97.3 fL (80.0-100.0); MEAN PLATELET VOLUME 9.7 fL (7.4-10.4); MONOCYTES 6.2 % (2-11); NEUTROPHILS 65.3 % (40-80); PLATELET COUNT 281 10x3/uL (130-400); RBC 3.31 10x6/uL (4.00-5.40); RDW 13.8 % (11.5-14.5)
[2019-02-02 06:20] LABS: CALCIUM 8.9 mg/dL (8.5-10.1); CARBON DIOXIDE 33.1 mmol/L (21.0-32.0); CREATININE - SERUM 0.9 mg/dL (0.6-1.3); POTASSIUM - SERUM 4.1 mmol/L (3.5-5.1)
[2019-02-02 08:07] VITALS: BP 160/53
[2019-02-02 19:00] VITALS: BP 144/45
--- NOTE | 2019-02-02 19:18 | NUR ---
AWAKE AND ALERT. RESPIRATIONS UNLABORED. NO DISTERSS NOTED. CALL LIGHT IN REACH. JERARDO INTACT TO RIGHT H IP.
--- NOTE | 2019-02-02 21:11 | NUR ---
PT RESTING WITH EYES CLOSED, RESP QUIET, NO DISTRESS NOTED, LEFT UNDISTURBED AT THIS TIME, BED IN LOW POSITION, SIDE RAILS X 2, CALL LIGHT IN REACH
--- NOTE | 2019-02-03 01:09 | NUR ---
CONTINUES RESTING IN BED WITH RESPIRATIONS UNLABORED. NO DISTRESS NOTED. CALL LIGHT IN REACH.
--- NOTE | 2019-02-03 03:28 | NUR ---
CONTINUES RESTING IN BED WITH EYES CLOSED AND RESPIRATIONS UNLABORED. NO DISTRESS NOTED. CALL LIGHT IN REACH.
--- NOTE | 2019-02-03 05:37 | NUR ---
QUIET HOURS. ASSISTED TO BATHROOM AND BACK TO BED. MEDICATED FOR PAIN. WILL MONITOR FOR EFFECTIVENESS. NO ACUTE DISTRESS NOTED.
--- NOTE | 2019-02-03 06:19 | NUR ---
PT CALLS OUT, STATES "I THINK I SAW A SPIDER", NO SPIDER FOUNDS, PT REQUESTED TO CHANGED SHIRT, SHIRT CHANGED, PT DENIES FURTHER NEEDS, BED IN LOW POSITION, SIDE RAILS X 2, CALL LIGHT IN REACH
--- NOTE | 2019-02-03 07:30 | NUR ---
ALERT AND ORIENTED. RESP EVEN AND UNLABORED NO DISTRESS NOTED.
[2019-02-03 08:14] VITALS: BP 176/48
--- NOTE | 2019-02-03 09:58 | NUR ---
Nutrition Follow Up: Chart reviewed. Pt is eating 75% meal avg on a regular diet. +BM 02/03/19. Meds and labs reviewed. Pt continues at low nutritional risk. RD following.
--- NOTE | 2019-02-03 11:52 | NUR ---
PARTICIPATED IN THERAPY THIS AM.
--- NOTE | 2019-02-03 12:02 | NUR ---
SHOWER GIVEN PER OT THIS AM.
[2019-02-03 15:03] VITALS: BP 134/68
--- NOTE | 2019-02-03 15:43 | NUR ---
NO CHANGE IN ASSESSMENT. NO C/O PAIN. CL IN REACH.
[2019-02-03 19:00] VITALS: BP 192/63
--- NOTE | 2019-02-03 22:32 | NUR ---
RESTING IN BED WITH RESPIRATIONS UNLABORED. JERARDO INTACT TO RIGHT HIP. NO ACUTE DISTRESS NOTED. CALL LIGHT IN REACH.
--- NOTE | 2019-02-04 02:54 | NUR ---
CONTINUES RESTING IN BED WITH RESPIRATIONS UNLABORED. NO DISTRESS NOTED. CALL LIGHT IN REACH.
--- NOTE | 2019-02-04 05:50 | NUR ---
QUIET HOURS. NO ACUTE CHANGES IN CONDITION THIS SHIFT. NO DISTRESS NOTED. CALL LIGHT IN REACH.
--- NOTE | 2019-02-04 07:39 | NUR ---
ALERT AND ORIENTED. NO C/O PAIN. RESP EVEN AND UNLABORED. CL IN REACH.
[2019-02-04 08:00] VITALS: BP 186/61
[2019-02-04 08:01] LABS: BASOPHILS 0.2 % (0-2); EOSINOPHILS 3.2 % (0-7); HEMATOCRIT 30.9 % (36.0-48.0); IMMATURE GRANULOCYTES 0.4 % (0-5); LYMPHOCYTES 20.3 % (15-50); MCH 31.3 pg (26.0-34.0); MCHC 32.4 g/dL (31.0-37.0); MCV 96.6 fL (80.0-100.0); MEAN PLATELET VOLUME 9.8 fL (7.4-10.4); MONOCYTES 6.6 % (2-11); NEUTROPHILS 69.3 % (40-80); PLATELET COUNT 294 10x3/uL (130-400); RDW 13.9 % (11.5-14.5); WBC 8.2 10x3/uL (4.8-10.8)
[2019-02-04 08:21] LABS: ANION GAP 8.7 mmol/L (8-16); CREATININE - SERUM 0.9 mg/dL (0.6-1.3); POTASSIUM - SERUM 4.7 mmol/L (3.5-5.1)
--- NOTE | 2019-02-04 10:51 | NUR ---
PARTICIPATING IN THERAPY THIS AM.
[2019-02-04 15:41] VITALS: BP 138/68
--- NOTE | 2019-02-04 16:26 | NUR ---
CARE TEAM MEETING: DAUGHTER ATTENDED MEETING AMD REQUEST THAT A REFERRAL BE MADE TO [facility] AT TIME OF DISCHARGE FROM HERE. WILL CONTINUE TO FOLLOW WITH PATIENT.
--- NOTE | 2019-02-04 16:28 | NUR ---
NO CHANGE IN ASSESSMENT. RESTING WO DISTRESS. CL IN REACH.
--- NOTE | 2019-02-04 16:48 | NUR ---
THERAPY REQUESTED PATIENT TO SIT UP IN CHAIR FOR DINNER. PATIENT IS VERY TIRED FROM HER THERAPY SESSION AND SAID SHE DIDN'T FEEL LIKE GETTING UP FOR DINNER. ATTEMPTED TO TRY TO CHANGE HER MIND BUT SHE WAS TOO TIRED SHE SAID.
[2019-02-04 19:00] VITALS: BP 206/48
--- NOTE | 2019-02-05 03:07 | NUR ---
PT IN BED LOWEST POSITION, EYES CLOSED, AROUSES EASILY TO VOICE, BREATHING EVEN AND UNLABORED, NO NEEDS NOTED, FLUIDS AND CALL LIGHT WITHIN REACH
[2019-02-05 08:00] VITALS: BP 160/64
--- NOTE | 2019-02-05 10:12 | NUR ---
THE PATIENT WAS AWAKE AND SITTING UP IN BED WHEN STAFF ENTERED HIS ROOM. BED IS IN THE LO WPOSITION WITH SIDERAILS X2 AND CALL LIGHT WITHIN REACH. THE PATIENT WAS EDUCATED ON AND DEMONSTRATED APPROPRIATE USE OF A CALL LIGHT. THE PATIENT APPEARS COMFORTABLE AND HAS NO QUESTIONS OR CONCERNS AT THIS TIME.
[2019-02-05 19:00] VITALS: BP 158/71
--- NOTE | 2019-02-05 20:02 | NUR ---
THE PATIENT WAS LYING IN BED AND WATCHING TELEVISION WHEN STAFF ENTERED HER ROOM. BED IS IN THE LOW POSITION WITH SIDERAILS X2 AND CALL LIGHT WITHIN REACH. THE PATIENT WAS EDUCATED TO CALL FOR ASSISTANCE WITH ANY ADLS AND DEMONSTRATES UNDERSTANDING VIA TEACHBACK METHOD. THE PATIENT APPEARS COMFORTABLE WITH NO QUESTIONS OR CONCERNS AT THIS TIME.
--- NOTE | 2019-02-05 22:28 | NUR ---
LYING IN BED SUPINE HOB 20 DEGREES EYES CLOSED RESTING. CONTINUES ON 2L VIA NC. NO SIGNS OF DISTRESS NOTED. CALL LIGHT WITHIN REACH, FALL PRECAUTIONS IN PLACE. WILL CONTINUE TO MONITOR
--- NOTE | 2019-02-06 01:21 | NUR ---
LYING IN BED ON RIGHT SIDE EYES CLOSED RESTING. CONTINUES ON 2L VIA NC. RR EVEN AND UNLABORED
--- NOTE | 2019-02-06 04:44 | NUR ---
LYING IN BED EYES CLOSED RESTING. RR EVEN AND UNLABORED. CALL LIGHT WITHIN REACH, FALL PRECAUTIONS IN PLACE.
[2019-02-06 07:44] LABS: BASOPHILS 0.3 % (0-2); HEMATOCRIT 30.2 % (36.0-48.0); HEMOGLOBIN 9.7 g/dL (12-16); IMMATURE GRANULOCYTES 0.3 % (0-5); LYMPHOCYTES 20.1 % (15-50); MCHC 32.1 g/dL (31.0-37.0); MCV 96.5 fL (80.0-100.0); MEAN PLATELET VOLUME 9.6 fL (7.4-10.4); NEUTROPHILS 69.3 % (40-80); PLATELET COUNT 294 10x3/uL (130-400); RBC 3.13 10x6/uL (4.00-5.40); RDW 14.1 % (11.5-14.5)
[2019-02-06 07:53] LABS: ANION GAP 10.8 mmol/L (8-16); CALCIUM 8.8 mg/dL (8.5-10.1); CARBON DIOXIDE 29.7 mmol/L (21.0-32.0); CREATININE - SERUM 0.9 mg/dL (0.6-1.3); POTASSIUM - SERUM 4.5 mmol/L (3.5-5.1)
--- NOTE | 2019-02-06 07:58 | NUR ---
THE PATIENT WAS LYING IN BED AND WATCHING TELEVISION WHEN STAFF ENTERED HER ROOM. BED IS IN THE LOW POSITION WITH SIDERAILS X2 AND CALL LIGHT WITHIN REACH. THE PATIENT WAS EDUCATED ON THE NEED TO CALL FOR ASSISTANCE WHEN SHE NEEDS TO GET OUT OF BED AND DEMONSTRATES UNDERSTANDING VIA TEACHBACK METHOD. THE PATIENT APPEARS COMFORTABLE WITH NO QUESTIONS OR CONCERNS AT THIS TIME.
[2019-02-06 08:02] VITALS: BP 191/63
--- NOTE | 2019-02-06 14:41 | NUR ---
REFERRAL HAS BEEN FAXED TO [facility] POSSIBLE ADMISSION ON 02/11/19
--- NOTE | 2019-02-06 18:00 | NUR ---
PT EATING DINNER, DENIES NEEDS. WCTM.
--- NOTE | 2019-02-06 19:21 | NUR ---
AWAKE AMD ALERT. RESTING IN BED WITH RESPIRATIONS UNLABORED. INCISION TO RIGHT HIP INTACT AND HEALING. NO DISTRESS NOTED. CALL LIGHT IN REACH.
[2019-02-06 20:06] VITALS: BP 175/60
--- NOTE | 2019-02-07 01:24 | NUR ---
RESTING IN BED WITH EYES CLOSED AND RESPIRATIONS UNLABORED. NO DISTRESS NOTED.
--- NOTE | 2019-02-07 05:17 | NUR ---
QUIET HOURS. RESTING IN BED WITH NO ACUTE CHANGES THIS SHIFT. NO DISTRESS NOTED.
[2019-02-07 07:30] VITALS: BP 217/74
--- NOTE | 2019-02-07 08:41 | NUR ---
ADMININSTERED MORNING MEDS WHOLE WITHOUT DIFFICULTY. RR EVEN AND UNLABORED. CONTINUES ON 2L VIA NC. SHIFT ASSESSMENT COMPLETE. CALL LIGHT WITHIN REACH, FALL PRECAUTIONS IN PLACE. WILL CONTINUE TO MONITOR
--- NOTE | 2019-02-07 14:43 | NUR ---
PREPPED RIGHT HIP FOR STAPLE REMOVAL WITH BETADINE, REMOVED 16 JERARDO FROM RIGHT HIP WITHOUT DIFFICULTY. INCISION WELL APPROXIMATED, 6 STERI STRIPS APPLIED.
--- NOTE | 2019-02-07 17:14 | NUR ---
SITTING UP IN BED.CL IN REACH.
--- NOTE | 2019-02-07 17:48 | NUR ---
SITTING UP ON SIDE OF BED EATING DINNER. DENIES ANY NEEDS. NO SIGNS OF DISTRESS NOTED.
--- NOTE | 2019-02-07 19:32 | NUR ---
PATIENT IS AWAKE AND RESTING IN HER BED. SHE DENIES ANY NEEDS. HER BED IS DOWN LOW WITH SIDE RAILS UP X2. CALL LIGHT IN REACH.
[2019-02-07 20:00] VITALS: BP 168/54
--- NOTE | 2019-02-08 00:02 | NUR ---
PATIENT IS SLEEPING. HER BED IS DOWN LOW WITH SIDE RAILS UP X2. CALL LIGHT IS IN REACH.
--- NOTE | 2019-02-08 08:00 | NUR ---
PT BEDDING AND CLOTHING CHANGED D/T INCONTINENCE. PT NOW SITTING UP EATING BREAKFAST, DENIES NEEDS. WCTM.
[2019-02-08 08:30] VITALS: BP 185/54
--- NOTE | 2019-02-08 09:05 | NUR ---
PT AM MEDS ADMINISTERED. PT DENIES NEEDS. WCTM.
--- NOTE | 2019-02-08 12:06 | NUR ---
PT EATING LUNHC, DENIES NEEDS. WCTM.
--- NOTE | 2019-02-08 13:15 | NUR ---
PT CHANGED OF INCONTINENT EPISODE. WCTM.
--- NOTE | 2019-02-08 17:48 | NUR ---
PT EATING DINNER, DENIES NEEDS. WCTM.
--- NOTE | 2019-02-08 19:43 | NUR ---
AWAKE AND ALERT RESTING IN BED. INCONTINENT OF URINE. INCONTINENT CARE GIVEN. PATIENT STATES SHE DOESNT KNOW WHY SHE SUDDENLY CANT TELL IF SHE HAS TO URIATE. CALL LIGHT IN REACH.
[2019-02-08 21:37] VITALS: BP 163/49
--- NOTE | 2019-02-09 00:31 | NUR ---
RESTING IN BED WITH EYES CLOSED AND RESPIRATIONS UNLABORED. NO DISTRESS NOTED. CALL LIGHT IN REACH.
--- NOTE | 2019-02-09 05:58 | NUR ---
QUIET HOURS. NO ACUTE CHANGES IN CONDITION THIS SHIFT. RESTING IN BED WITH NO DISTRESS NOTED. CALL LIGHT IN REACH.
[2019-02-09 06:30] LABS: BASOPHILS 0.7 % (0-2); EOSINOPHILS 4.8 % (0-7); HEMATOCRIT 32.3 % (36.0-48.0); HEMOGLOBIN 10.1 g/dL (12-16); IMMATURE GRANULOCYTES 0.2 % (0-5); LYMPHOCYTES 27.5 % (15-50); MCH 30.7 pg (26.0-34.0); MCHC 31.3 g/dL (31.0-37.0); MCV 98.2 fL (80.0-100.0); MEAN PLATELET VOLUME 9.5 fL (7.4-10.4); MONOCYTES 8.3 % (2-11); NEUTROPHILS 58.5 % (40-80); PLATELET COUNT 294 10x3/uL (130-400); RBC 3.29 10x6/uL (4.00-5.40); RDW 14.4 % (11.5-14.5)
[2019-02-09 06:35] LABS: ANION GAP 8.1 mmol/L (8-16); CALCIUM 8.7 mg/dL (8.5-10.1); CARBON DIOXIDE 30.6 mmol/L (21.0-32.0); POTASSIUM - SERUM 4.7 mmol/L (3.5-5.1)
--- NOTE | 2019-02-09 08:00 | NUR ---
PT SITTING UP EATING BREAFAST, DENIES NEEDS. WCTM.
[2019-02-09 08:06] VITALS: BP 193/65
--- NOTE | 2019-02-09 10:00 | NUR ---
PT AM MEDS ADMINISTERED. PT DENIES NEEDS. WCTM.
--- NOTE | 2019-02-09 18:47 | NUR ---
AWAKE AND ALERT. RESTING IN BED. RESPIRATIONS UNLABORED. NO ACUTE DISTRESS NOTED. CALL LIGHT IN REACH.
[2019-02-09 19:00] VITALS: BP 175/52
--- NOTE | 2019-02-10 00:21 | NUR ---
INCONTINENT OF URINE. INCONTINENCE CARE GIVEN AND REPOSITIONED FOR COMFORT. BLE'S ELEVATED ON PILLOWS. CALL LIGHT IN REACH.
--- NOTE | 2019-02-10 05:05 | NUR ---
CONTINUES RESTING IN BED. O2/2L ON PER NASAL CANNULA. SLEPT AT INTERVALS. NO ACUTE DISTRESS NOTED. CALL LIGHT IN REACH.
--- NOTE | 2019-02-10 07:54 | NUR ---
THE PATIENT APPEARED TO BE SLEEPING, BUT EASILY AWOKE WHEN STAFF ENTERED HER ROOM. BED IS IN THE LOW POSITION WITH SIDERAILS X2 AND CALL LIGHT WITHIN REACH. THE PATIENT APPEARS COMFORTABLE WITH NO QUESTIONS OR CONCERNS AT THIS TIME.
[2019-02-10 08:00] VITALS: BP 186/56
--- NOTE | 2019-02-10 09:39 | NUR ---
Nutrition Follow up: Regular diet with 50-75% intake of meals Pt has whole milk ordered on all trays Pt reports she really likes the food and usually drinks milk Encouraged good po intake to help optimize progres in therapy RD following
--- NOTE | 2019-02-10 10:45 | NUR ---
CHANGED TO A ONE VIEW CXR PER NURSE, NURSE SAID PATIENT WAS NON WEIGHT BEARING AND COULD NOT STAND FOR A 2VIEW CXR
[2019-02-10 19:01] VITALS: BP 104/74
--- NOTE | 2019-02-10 20:00 | NUR ---
PATIENT RECEIVED SITTING UP IN BED. VITAL SIGNS & ASSESSMENT DONE. NO C/O PAIN OR DISTRESS. BED LOW. BEDSIDE TABLE & CALL LIGHT WITHIN REACH. WILL CONTINUE TO MONITOR.
--- NOTE | 2019-02-10 23:22 | NUR ---
PATIENT EYES CLOSED. RESPIRATIONS 18 & EVEN. PATIENT BED LOW. CALL LIGHT WITHIN REACH. WILL CONTINUE TO MONITOR.
--- NOTE | 2019-02-11 03:37 | NUR ---
PATIENT EYES CLOSED. RESPIRATIONS 18 & EVEN. BED LOW. CALL LIGHT WITHIN REACH. WILL CONTINUE TO MONITOR.
--- NOTE | 2019-02-11 04:36 | NUR ---
I AGREE WITH MEDICAL INSURANCE BILLER ASSESSMENT
[2019-02-11 07:17] LABS: ANION GAP 8.1 mmol/L (8-16); CALCIUM 8.7 mg/dL (8.5-10.1); CARBON DIOXIDE 31.5 mmol/L (21.0-32.0); CREATININE - SERUM 0.8 mg/dL (0.6-1.3); POTASSIUM - SERUM 4.6 mmol/L (3.5-5.1)
[2019-02-11 07:45] VITALS: BP 198/73
--- NOTE | 2019-02-11 07:52 | NUR ---
ALERT AND ORINTED. EATING BREAKFAST. NO DISTRESS NOTED. CL IN REACH.
[2019-02-11] MEDS ORDERED: COREG6.25 MG PO (08:06)
[2019-02-11] MEDS ORDERED: COZAAR50 MG PO (08:06)
[2019-02-11] MEDS ORDERED: NORCO-7.5 PO (08:07)
[2019-02-11] MEDS ORDERED: DICLOFENAC SODI50 MG PO (08:07)
--- NOTE | 2019-02-11 09:40 | NUR ---
PATIENT DISCHARGING TO [facility]IA FACILITY [facility].NO HOME HEALTH OR DME NEEDS AT THIS TIME. AN APPOINTMENT WITH DR. FERREIRA WILL BE MADE AT TIME OF DISCHARGE FROM FACILITY. DR. FUNES 02/23/19 @ 1:15. PATIENT CHOICE FORM AND [facility] FORMS SIGNED, COPY GIVEN TO PATIENT AND FILED IN CHART. DISCHARGE INSTRUCTIONS WITH [facility] FAXED TO PCP, SNF AND REVIEWED WITH PATIENT.
--- NOTE | 2019-02-11 11:30 | NUR ---
PATIENT GOING TO [facility] TODAY PER THEIR [facility]. WILL BE TRANSFERED TO [facility] BY WC. ATTEMPTED TO CALL REPORT X2- NO ONE ANSWERED PHONE. DC PAPERWORK GIVEN TO PATENT TO BE GIVEN TO FACILITY. PERSCRIPTION FOR [employer] SENT WITH PAPERWORK. NO CHANGE IN ASSESSMENT.
--- NOTE | 2019-02-11 12:40 | NUR ---
DC'D TO [facility] AT THIS TIME.
== END 2019-02-11 12:40 | DRG 560 ==
LOC: D.REHAB 18:20
PROVIDERS: ADMIT Emergency Medicine; ATTEND Emergency Medicine
DX: S72.001D Fracture of unspecified part of neck of right femur, subsequent encounter for closed fracture with routine healing (principal); D62 Acute posthemorrhagic anemia; I10 Essential (primary) hypertension; D72.829 Elevated white blood cell count, unspecified; G89.29 Other chronic pain; Z85.3 Personal history of malignant neoplasm of breast; R53.81 Other malaise; R09.02 Hypoxemia; M19.90 Unspecified osteoarthritis, unspecified site; W19.XXXD Unspecified fall, subsequent encounter; R53.1 Weakness